=== PATIENT | male | born 2000 | race Caucasian/White ===

== ENCOUNTER 2021-10-06 00:15 | Emergency (ER) | payer SELFPAY ==
--- OUTSIDE RECORDS SUMMARY | 2021-10-06 00:22 | XMS REPORT | Clinical Summary ---
Author Author [facility] Organization [facility] Address Unknown Phone Unavailable Care Team Providers Care Activities Therapist Name Role Phone Marcellus Mclean PA-C PCP Allergies No known active allergies Medications No known medications Active Problems Not on file Social History Date Tobacco Use Types Packs/Day Years Used Never Assessed Sex Assigned at Date Recorded Not on file Last Filed Vital Signs Not on file Plan of Treatment Health Maintenance Due Date Last Done Comments Varicella Vaccines (1 of 2001 2 - 2-dose childhood series) COVID-19 Vaccine (1) 2005 HPV Vaccines (1 - Male 2011 2-dose series) MenB Vaccine (Bexsero) (1 2016 of 2) Hepatitis C Screening 2018 DTaP,Tdap,and Td Vaccines 2019 (1 - Tdap) MMR Vaccines-Adult 2019 Influenza Vaccine (#1) 2021 Pneumo-Vaccine: 65+Yrs (1 2065 of 1 - PPSV23) HIB Vaccines Aged Out No longer eligible based on patient's age to complete this topic IPV Vaccines Aged Out No longer eligible based on patient's age to complete this topic Meningococcal Vaccine Aged Out No longer eligib le based on patient's age to complete this topic Pneumo-Vaccine: Peds (0-5 Aged Out No longer el igible based on patient's age to Yrs) & At-Risk Patients complete this topic (6-64 Yrs) Rotavirus Vaccines Aged Out No longer eligible based on patient's age to complete this topic Results Not on filefrom Last 3 Months Advance Directives For more information, please contact: [phone] Patient Spinning Machine Tender Explanation Type Date Recorded Advance Directives and Living Will Power of Butcher Supervisor Care Teams Start Date End Date Activities Therapist Relationship Specialty 07/28/17 Marcellus Mclean PA-C PCP - [address] [id number] [email or web address]
--- NOTE | 2021-10-06 00:38 | ED Chest Pain ---
General Chief Complaint: Chest Pain Stated Complaint: CHEST PAIN Source: patient Exam Limitations: no limitations History of Present Illness Date Seen by Provider: Oct 06, 2021 Time Seen by Provider: 00:21 Initial Comments 21-year-old male with no significant past medical history coming in due to chest pain. On the left side of his chest, his pressure, constant, moderate, and has been going on for greater than 1 day. Has had pain like this off and on for the past couple months, but today it has been constant. Nothing seems to make it better or worse. No fever or shortness of breath associated with it. No prior history of blood clots, no hemoptysis, no recent surgery, no leg pain or swelling, no recent long travel. Allergies and Home Medications Allergies Coded Allergies: azithromycin (Verified Allergy, Unknown, 10/06/21) Patient Home Medication List Home Medication List Reviewed: Yes Review of Systems Review of Systems Constitutional: No chills, No fever EENTM: No Blurred Vision Respiratory: Denies Cough, Denies Shortness of Air Cardiovascular: Chest Pain Gastrointestinal: Denies Abdominal Pain Genitourinary: Denies Burning Musculoskeletal: no symptoms reported Skin: no symptoms reported Psychiatric/Neurological: No Symptoms Reported Endocrine: No Symptoms Reported Hematologic/Lymphatic: No Symptoms Reported All Other Systems Reviewed Negative Unless Noted: Yes Past Bpletdb-Gyoppz-Qtatmg Hx Patient Social History Tobacco Use?: Yes Smoking Status: Current Everyday Smoker Use of E-Cig and/or Vaping dev: Yes E-Cig or Vaping type used: Nicotine Substance use?: No Alcohol Use?: No Pt feels they are or have been: No Past Medical History Surgeries: No Physical Exam Vital Signs Vital Signs - First Documented 10/06/21 00:20 Temp 36.7 Pulse 82 Resp 18 B/P (MAP) 120/69 (86) Pulse Ox 99 O2 Delivery Room Air Capillary Refill : Height, Weight, BMI Height: '" Weight: lbs. oz. kg; BMI Method: General Appearance: No Apparent Distress, WD/WN HEENT: PERRL/EOMI, Normal ENT Inspection, Pharynx Normal Neck: Full Range of Motion, Normal Inspection, Non Tender, Supple Respiratory: Chest Non Tender, Lungs Clear, Normal Breath Sounds, No Accessory Muscle Use, No Respiratory Distress Cardiovascular: Regular Rate, Rhythm, No Edema, Normal Peripheral Pulses Gastrointestinal: Normal Bowel Sounds, Non Tender, Soft; No Distended, No Guarding Extremity: Normal Capillary Refill, Normal Inspection, Normal Range of Motion, Non Tender, No Calf Tenderness, No Pedal Edema Neurologic/Psychiatric: Alert, No Motor/Sensory Deficits, Normal Mood/Affect Skin: Normal Color, Warm/Dry Lymphatic: No Adenopathy Progress/Results/Core Measures Results/Orders Vital Signs/I&O 10/06/21 00:20 Temp 36.7 Pulse 82 Resp 18 B/P (MAP) 120/69 (86) Pulse Ox 99 O2 Delivery Room Air Progress Progress Note : Progress Note 21-year-old male with above history coming in due to chest pain. ABCs were inta ct and vitals were stable on presentation. His heart score is 0 and he is low risk for ACS especially given his age. EKG without any acute ischemic changes. He is low risk for a blood clot via [place] criteria and is PERC negative. Lung sounds are clear bilaterally. I did a [id number] ultrasound and he has no pericardial effusion and normal lung sliding bilaterally ruling out pneumothorax. I believe he is stable for discharge with outpatient follow-up. He was sent home with strict return precautions. Initial ECG Impression Date: Oct 06, 2021 Initial ECG Impression Time: 00:21 Initial ECG Rate: 79 Initial ECG Rhythm: Normal Sinus Comment Normal axis, narrow QRS, no significant ST changes or T wave abnormalities, there is some baseline wander making it difficult to interpret at some points Departure Impression Primary Impression: Chest pain Qualified Codes: R07.9 - Chest pain, unspecified Disposition: 01 HOME, SELF-CARE Condition: Stable Departure-Patient Inst. Decision time for Depature: 00:37 Referrals: MATTHEW JADE MD FACP FAC [facility] NO,LOCAL PHYSICIAN (PCP) Primary Care Physician Patient Instructions: Chest Pain (DC) Add. Discharge Instructions: Your EKG and ultrasound look good. Your heart is squeezing normally, you do not have any fluid around it, and your lungs look good. I think this is more likely inflammation causing pain which is painful, but not normally dangerous. Take ibuprofen 600 mg every 6 hours as needed for pain. I still do recommend given your family history that you follow-up with a mineral surveyor to discuss the symptoms and your family history. Dr. Jade is a good mineral surveyor that you could follow-up with. Work/School Note: Work Release Form Date Seen in the Emergency Department: Oct 06, 2021 Return to Work: Oct 07, 2021 Restrictions: No Restrictions KARIE BURROUGHS MD Oct 06, 2021 00:38
[2021-10-06 00:39] VITALS: BP 120/69
== END 2021-10-06 00:41 | disposition home or self-care (01) ==
LOC: ER FS 00:19
DX: R07.9 Chest pain, unspecified (principal); F17.290 Nicotine dependence, other tobacco product, uncomplicated
CPT/HCPCS: 93005

== ENCOUNTER 2022-05-29 19:52 | Emergency (ER) | payer SELFPAY ==
--- NOTE | 2022-05-29 20:19 | ED Headache ---
General Chief Complaint: Head/Cervical Problems Stated Complaint: MIGRAINE Nursing Triage Note: Pt complaining of a headache that started about 6 days ago. Source: patient History of Present Illness Date Seen by Provider: May 29, 2022 Time Seen by Provider: 20:19 Initial Comments 21-year-old male presenting with family due to complaints of a cluster headache that has been going on for over 6 days. He states usually these are brought on by stress and anxiety. If he does not catch them early enough that they get severe. He usually manages them with [id number] meds are helping him sleep. He feels like he has been under extra stress and anxiety recently. He denies any acute head injury. He has had no fever or chills. He does not have a primary care provider. Timing/Duration: 1 week Severity/Quality: severe Location: frontal Prior Headaches/Recent Trauma: no recent headache/trauma Modifying Factors: improves with rest (usually if he can rest or sleep it helps but he has not been able to sleep); worse with other (stress makes it worse) Associated Symptoms: No confusion; fatigue; No facial pain, No fever/chills, No flushing, No loss of consciousness; nausea/vomiting; No nasal congestion, No nasal drainage, No numbness in legs/feet, No rash, No seizures, No sinus infection, No stiff neck, No vision changes, No weakness Allergies and Home Medications Allergies Coded Allergies: azithromycin (Verified Allergy, Unknown, 10/06/21) Patient Home Medication List Home Medication List Reviewed: Yes Review of Systems Review of Systems Constitutional: No chills, No fever Eyes: Photophobia Ears, Nose, Mouth, Throat: denies ear pain, denies ear discharge, denies nose pain, denies nose discharge, denies epistaxis Respiratory: No cough, No dyspnea on exertion, No short of breath Cardiovascular: No chest pain Gastrointestinal: see HPI Genitourinary: no symptoms reported Musculoskeletal: no symptoms reported Skin: No rash Psychiatric/Neurological: See HPI Past Moqfedk-Fnzboz-Tfjqhl Hx Patient Social History Tobacco Use?: Yes Tobacco type used: Cigarettes Smoking Status: Current Everyday Smoker Use of E-Cig and/or Vaping dev: No Substance use?: No Alcohol Use?: No Past Medical History Surgery/Hospitalization HX: Cluster Headaches Surgeries: No Physical Exam Vital Signs Vital Signs - First Documented 05/29/22 20:00 Temp 37.1 Pulse 77 Resp 16 B/P (MAP) 130/77 (94) Pulse Ox 99 O2 Delivery Room Air Capillary Refill : Less Than 3 Seconds Height, Weight, BMI Height: '" Weight: lbs. oz. kg; BMI Method: General Appearance: no apparent distress, thin, other (wearing sunglasses) HEENT: PERRL/EOMI, normal ENT inspection, TMs normal, pharynx normal, photophobia, other (Negative carolina sign, negative raccoon sign, no CSF otorrhea, no CSF rhinorrhea, no hemotympanum) Neck: non-tender, full range of motion, supple, normal inspection Cardiovascular: normal peripheral pulses, regular rate, rhythm Respiratory: chest non-tender, lungs clear, normal breath sounds, no respiratory distress, no accessory muscle use Gastrointestinal: normal bowel sounds, non tender, soft, no pulsatile mass Extremities: normal range of motion, non-tender, normal capillary refill Psychiatric: alert, oriented x 3 Crainal Nerves: normal hearing, normal speech, PERRL Coordination/Gait: normal gait Motor/Sensory: no motor deficit, no sensory deficit Skin: normal color, warm/dry Progress/Results/Core Measures Results/Orders My Orders Orders - CHARLOTTE WALTON MD Ed Iv/Invasive Line Start (05/29/22 20:38) Ns Iv 1000 Ml (Sodium Chloride 0.9%) (05/29/22 20:38) Ketorolac Injection (Toradol Injection) (05/29/22 20:38) Diphenhydramine Injection (Benadryl Inje (05/29/22 20:38) Metoclopramide Injection (Reglan Injecti (05/29/22 20:38) Diphenhydramine Injection (Benadryl Inje (05/29/22 21:30) Vital Signs/I&O 05/29/22 05/29/22 05/29/22 20:00 20:55 21:39 Temp 37.1 37.1 Pulse 77 69 Resp 16 16 B/P (MAP) 130/77 (94) 119/72 Pulse Ox 99 99 O2 Delivery Room Air Room Air 05/30/22 00:00 Intake Total 1000 ml Balance 1000 ml Blood Pressure Mean: 94 Progress Progress Note #1: Progress Note With no focal neurologic deficit will try giving migraine cocktail of Toradol, Benadryl, Reglan with normal saline for hydration. See if that helps with his symptoms. With no focal deficit and no head trauma neuroimaging was not indicated. Progress Note #2: Progress Note His headache had improved from a 9 or 10 down to a 5 or 6. He felt like he could sleep and rest so we will give an additional 25 mg of Benadryl and discharged him to home. Encourage rest in a cool dark room. Counseled to follow-up with clinic and try and get established with care so they could help with medications. Departure Impression Primary Impression: Cluster headache, episodic Qualified Codes: G44.011 - Episodic cluster headache, intractable Disposition: HOME, SELF-CARE Condition: Improved Departure-Patient Inst. Decision time for Depature: 21:31 Referrals: NO,LOCAL PHYSICIAN (PCP) Primary Care Physician [facility] Patient Instructions: Headache, Adult ED, How to Keep Track of Your Headaches, Home Headache Remedies Add. Discharge Instructions: Stay well hydrated and get plenty of rest. For tonight go home and rest in a cool dark room and let the medicines work to help your headache improve and this should help your headache go away for you. Check with Leah Cha or provider of your choice about treatment options for your cluster headaches All discharge instructions reviewed with patient and/or family. Voiced understa nding. CHARLOTTE WALTON MD May 29, 2022 20:19
[2022-05-29] MEDS ORDERED: NS IV 1000 ML 1,000 ML IV STA (20:38)
[2022-05-29] MEDS ORDERED: KETOROLAC 30 MG/ML VIAL IVP STA (20:38)
[2022-05-29] MEDS ORDERED: diphenhydrAMINE 50 MG/ML INJ (BENADRYL) IVP STA ×2 (20:38→21:30)
[2022-05-29] MEDS ORDERED: METOCLOPRAMIDE INJ 10 MG/2 ML (REGLAN) IVP STA (20:38)
[2022-05-29 21:39] VITALS: BP 119/72
== END 2022-05-29 21:39 | disposition home or self-care (01) ==
LOC: EDUNIT# 19:52 → ER FS 19:55
DX: G44.019 Episodic cluster headache, not intractable (principal); F17.210 Nicotine dependence, cigarettes, uncomplicated; Z28.310 Unvaccinated for COVID-19